=== PATIENT | male | born 1995 | race Caucasian/White ===

== ENCOUNTER 2018-12-04 04:13 | Emergency (ER) | payer OTHER ==
[2018-12-04 04:22] VITALS: BP 106/72; PULSE 75; RESP 18; TEMP 98.3
[2018-12-04] MEDS ORDERED: AMOXIC-POT CLAV 875MG STARTER 2 EACH TABLET PO STA (04:35)
[2018-12-04] MEDS ORDERED: ACET/COD 300 MG/30 MG STARTER PACK 6 TAB BTL PO STA (04:35)
[2018-12-04] MEDS ORDERED: IBUPROFEN 400 MG TAB PO STA (04:36)
--- NOTE | 2018-12-04 04:37 | ED ---
ENT HPI - General Chief complaint: Dental/Oral Stated complaint: Dental Pain/ Facial Numbness Time Seen by Provider: 12/04/18 04:28 Source: patient Mode of arrival: ambulatory Limitations: no limitations - History of Present Illness complaint: tooth pain Onset/Timin -: week(s) Location: tooth # (17) Severity: severe Quality: aching Consistency: constant Improves with: none Worsens with: none Context- Dental: history of dental caries Associated Symptoms: toothache - Related Data Previous Rx's Medication Instructions Recorded Amoxicillin 875 mg PO Q12HR #14 tablet 12/04/18 Ibuprofen [Motrin] 600 mg PO Q8HR PRN #20 tab 12/04/18 Allergies Allergy/AdvReac Type Severity Reaction Status Date / Time No Known Allergies Allergy Verified 12/04/18 04:22 Review of Systems ROS Statement: Those systems with pertinent positive or pertinent negative responses have been documented in the HPI. ROS Other: All systems not noted in ROS Statement are negative. Constitutional: Denies: fever, chills Eyes: Denies: eye pain, vision change Respiratory: Denies: dyspnea Cardiovascular: Denies: chest pain, palpitations Neurological: Denies: headache Past Medical History Past Medical History: No Reported History History of Any Multi-Drug Resistant Organisms: None Reported Past Surgical History: No Surgical Hx Reported Past Psychological History: No Psychological Hx Reported Smoking Status: Current every day smoker Past Alcohol Use History: Occasional Past Drug Use History: None Reported General Exam Limitations: no limitations General appearance: alert, in no apparent distress Head exam: Present: atraumatic, normocephalic Eye exam: Present: normal appearance, PERRL, EOMI. Absent: scleral icterus, conjunctival injection ENT exam: Present: mucous membranes moist, TM's normal bilaterally, normal external ear exam, other (Patient has extensive dental caries affecting most of his teeth. There is no abscess. No sublingual or neck fullness.) Neck exam: Present: normal inspection, full ROM. Absent: tenderness, meningismus Skin exam: Present: warm, dry, intact, normal color. Absent: rash Course Vital Signs 12/04/18 04:18 Temperature 98.3 F Pulse Rate 75 Respiratory 18 Rate Blood Pressure 106/72 O2 Sat by Pulse 99 Oximetry Disposition Clinical Impression: Dental caries, Toothache Disposition: HOME SELF-CARE Condition: Good Instructions (If sedation given, give patient instructions): Dental Caries (ED), Toothache (ED) Prescriptions: Amoxicillin 875 mg PO Q12HR #14 tablet Ibuprofen [Motrin] 600 mg PO Q8HR PRN #20 tab PRN Reason: Pain Is patient prescribed a controlled substance at d/c from ED?: No Referrals: None,Stated [Primary Care Provider] - 1-2 days
== END 2018-12-04 04:58 | disposition home or self-care (01) ==
LOC: EC 04:13
DX: K02.9 Dental caries, unspecified (principal); F17.200 Nicotine dependence, unspecified, uncomplicated
CPT/HCPCS: 99283

== ENCOUNTER 2021-01-11 07:56 | Emergency (ER) | payer OTHER ==
[2021-01-11 08:02] VITALS: BP 116/76; PULSE 88; RESP 18; TEMP 98.2
--- NOTE | 2021-01-11 08:15 | ED ---
General Adult HPI - General Chief complaint: Anxiety Stated complaint: anxiety Time Seen by Provider: 01/11/21 07:58 Source: patient Mode of arrival: ambulatory Limitations: no limitations - History of Present Illness Initial comments: Dictation was produced using [employer] dictation software. please excuse any grammatical, word or spelling errors. Chief Complaint: 25-year-old male no significant medical problems presents with paresthesias to the left side of the body History of Present Illness: 25-year-old male who presents today with nonspecific paresthesias to the left side of the body. He denies numbness or weakness. Patient states he's been feeling anxious. He drinks a lot of caffeine on a regular basis. He was told by his family members he is having symptoms in his arms that he may be having a heart attack. He has no chest pain or shortness of breath. Feels anxious about his symptoms. He does not have a history of anxiety. Patient drinks a lot of energy drinks on a regular basis. He had one 1 hour prior to arrival. Patient states that he plays video games a lot at night. He believes that his sleeping issues or hereditary. The ROS documented in this emergency department record has been reviewed and co nfirmed by me. Those systems with pertinent positive or negative responses have been documented in the HPI. All other systems are other negative and/or noncontributory. PHYSICAL EXAM: General Impression: Alert and oriented x3, not in acute distress HEENT: Normocephalic atraumatic, extra-ocular movements intact, pupils equal and reactive to light bilaterally, mucous membranes moist. Cardiovascular: Heart regular rate and rhythm Chest: Able to complete full sentences, no retractions, no tachypnea Abdomen: abdomen soft, non-tender, non-distended, no organomegaly Musculoskeletal: Pulses present and equal in all extremities, no peripheral edema Motor: no focal deficits noted Neurological: CN II-XII grossly intact, no focal motor or sensory deficits noted Skin: Intact with no visualized rashes Psych: Normal affect and mood ED course: 25-year-old male presents with self-reported left sided paresthesias. Signs upon arrival are within acceptable limits. EKG is unremarkable. Patient has no significant medical history. Metabolic panel is unremarkable. No electrolyte derangement. Patient reevaluated at bedside and found to be in stable medical condition. Patient does not have any high risk features. He is clinical stable at reevaluation approximate 9:20 AM. At this point is unclear what is causing patient's symptoms. His likely has some B do with anxiety versus excessive caffeine intake. Patient agreeable for discharge. Patient does have a PCP. He is given a referral. Advised follow-up. Patient counseled on good sleep hygiene. EKG interpretation: Ventricular rate 83, normal sinus rhythm,. 162, QRS 84, QTC 415. No TN prolongation, no QTC prolongation, no ST or T-wave changes noted. Overall, this EKG is unremarkable - Related Data Previous Rx's Medication Instructions Recorded Amoxicillin 875 mg PO Q12HR #14 tablet 12/04/18 Ibuprofen [Motrin] 600 mg PO Q8HR PRN #20 tab 12/04/18 Allergies Allergy/AdvReac Type Severity Reaction Status Date / Time No Known Allergies Allergy Verified 01/11/21 08:02 Review of Systems ROS Statement: Those systems with pertinent positive or pertinent negative responses have been documented in the HPI. ROS Other: All systems not noted in ROS Statement are negative. Past Medical History Past Medical History: No Reported History History of Any Multi-Drug Resistant Organisms: None Reported Past Surgical History: No Surgical Hx Reported Past Psychological History: Anxiety Smoking Status: Current every day smoker Past Alcohol Use History: Occasional Past Drug Use History: None Reported General Exam Limitations: no limitations Course Vital Signs 01/11/21 08:00 Temperature 98.2 F Pulse Rate 88 Respiratory 18 Rate Blood Pressure 116/76 O2 Sat by Pulse 99 Oximetry Medical Decision Making - Lab Data Result diagrams: 01/11/21 08:35 Lab Results 01/11/21 Range/Units 08:35 Sodium 141 (137-145) mmol/L Potassium 3.5 (3.5-5.1) mmol/L Chloride 103 (98-107) mmol/L Carbon Dioxide 31 H (22-30) mmol/L Anion Gap 7 mmol/L BUN 7 L (9-20) mg/dL Creatinine 0.92 (0.66-1.25) mg/dL Est GFR (CKD-EPI)AfAm >90 (>60 ml/min/1.73 sqM) Est GFR (CKD-EPI)NonAf >90 (>60 ml/min/1.73 sqM) Glucose 110 H (74-99) mg/dL Calcium 9.4 (8.4-10.2) mg/dL Magnesium 1.7 (1.6-2.3) mg/dL Disposition Clinical Impression: Paresthesias Disposition: HOME SELF-CARE Instructions (If sedation given, give patient instructions): Generalized Anxiety Disorder (ED) Is patient prescribed a controlled substance at d/c from ED?: No Referrals: Sharona Julian MD [STAFF PHYSICIAN] - 1-2 days
[2021-01-11 09:06] LABS: African American GFR (CKD) >90 (>60 ml/min/1.73 sqM); Anion Gap 7 mmol/L; Blood Urea Nitrogen 7 mg/dL (9-20); Calcium 9.4 mg/dL (8.4-10.2); Carbon Dioxide 31 mmol/L (22-30); Chloride 103 mmol/L (98-107); Glucose 110 mg/dL (74-99); Magnesium 1.7 mg/dL (1.6-2.3); Non-African American GFR(CKD) >90 (>60 ml/min/1.73 sqM); Potassium 3.5 mmol/L (3.5-5.1); Sodium 141 mmol/L (137-145)
== END 2021-01-11 09:55 | disposition home or self-care (01) ==
LOC: EC 07:56
DX: R20.2 Paresthesia of skin (principal); F17.200 Nicotine dependence, unspecified, uncomplicated
CPT/HCPCS: 36415; 80048; 83735; 93005; 99284

== ENCOUNTER 2024-11-10 23:49 | Emergency (ER) | payer BC, OTHER ==
[2024-11-10 23:53] VITALS: BP 114/77; PULSE 72; RESP 18; TEMP 98.2
--- NOTE | 2024-11-11 00:07 | ED ---
ENT HPI - General Chief complaint: Dental/Oral Stated complaint: Tooth abscess Time Seen by Provider: 11/10/24 23:54 Source: patient Mode of arrival: ambulatory Limitations: no limitations - History of Present Illness Initial comments: 29-year-old male presenting with chief complaint of of dental pain and swelling. Patient has history of poor oral hygiene with multiple dental caries and fractured teeth. States that today he noticed some increased swelling along the gumline and tenderness that increased throughout the day. States that he is having sharp pain in his jaw on the right lower side. No difficulty breathing or swallowing. No difficulty opening the jaw. No fever. - Related Data Previous Rx's Medication Instructions Recorded Amoxicillin 875 mg PO Q12HR #14 tablet 12/04/18 Ibuprofen [Motrin] 600 mg PO Q8HR PRN #20 tab 12/04/18 Amoxic-Pot Clav 875-125Mg 1 tab PO Q12HR 7 Days #14 tab 11/11/24 [Augmentin 875-125] Allergies Allergy/AdvReac Type Severity Reaction Status Date / Time No Known Allergies Allergy Verified 11/10/24 23:53 Review of Systems ROS Statement: Those systems with pertinent positive or pertinent negative responses have been documented in the HPI. ROS Other: All systems not noted in ROS Statement are negative. Past Medical History Past Medical History: No Reported History History of Any Multi-Drug Resistant Organisms: None Reported Past Surgical History: No Surgical Hx Reported Past Psychological History: Anxiety, Panic Disorder Smoking Status: Current every day smoker Past Alcohol Use History: Occasional Past Drug Use History: None Reported General Exam Limitations: no limitations General appearance: alert, in no apparent distress Head exam: Present: atraumatic, normocephalic, normal inspection Eye exam: Present: normal appearance, EOMI. Absent: periorbital swelling Expanded Mouth exam: Present: normal external inspection Teeth exam: Present: dental caries, fractured tooth #, dental tenderness #, gingival enlargement Neck exam: Present: normal inspection. Absent: meningismus Respiratory exam: Absent: respiratory distress Cardiovascular Exam: Present: regular rate Neurological exam: Present: alert, oriented X3 Psychiatric exam: Present: normal affect, normal mood Skin exam: Present: warm, dry, normal color Course Vital Signs 11/10/24 23:50 Temperature 98.2 F Pulse Rate 72 Respiratory 18 Rate Blood Pressure 114/77 O2 Sat by Pulse 97 Oximetry Medical Decision Making - Medical Decision Making Was pt. sent in by a medical professional or institution ([facility], ARCHITECTURAL DRAFTING INSTRUCTOR, urgent care, hospital, or long-term...) When possible be specific @ -No Did you speak to anyone other than the patient for history (EMS, parent, family, police, friend...)? What history was obtained from this source @ -No Did you review nursing and triage notes (agree or disagree)? Why? @ -I reviewed and agree with nursing and triage notes Were old charts reviewed (outside hosp., previous admission, EMS record, old EKG, old radiological studies, urgent care reports/EKG's, long-term records)? Report findings @ -No old charts were reviewed Differential Diagnosis (chest pain, altered mental status, abdominal pain women, abdominal pain men, vaginal bleeding, weakness, fever, dyspnea, syncope, headache, dizziness, GI bleed, back pain, seizure, CVA, palpatations, mental health, musculoskeletal)? @ -Differential includes dental pain, dental abscess, Margarito's angina, not an all-inclusive list EKG interpreted by me (3pts min.). @ -As above X-rays interpreted by me (1pt min.). @ -None done CT interpreted by me (1pt min.). @ -None done U/S interpreted by me (1pt. min.). @ -None done What testing was considered but not performed or refused? (CT, X-rays, U/S, labs)? Why? @ -None What meds were considered but not given or refused? Why? @ -None Did you discuss the management of the patient with other professionals (professionals i.e. [facility], ARCHITECTURAL DRAFTING INSTRUCTOR, lab, RT, psych nurse, psychiatric social worker, customer contact specialist, teacher, welfare officer, geriatric case manager)? Give summary @ -No Was smoking cessation discussed for >3mins.? @ -No Was critical care preformed (if so, how long)? @ -No Were there social determinants of health that impacted care today? How? (Homelessness, low income, unemployed, alcoholism, drug addiction, transportation, low edu. Level, literacy, decrease access to med. care, penitentiary, rehab)? @ -No Was there de-escalation of care discussed even if they declined (Discuss DNR or withdrawal of care, Hospice)? DNR status @ -No What co-morbidities impacted this encounter? (DM, HTN, Smoking, COPD, CAD, Cancer, CVA, ARF, Chemo, Hep., AIDS, mental health diagnosis, sleep apnea, morbid obesity)? @ -None Was patient admitted / discharged? Hospital course, mention meds given and route, prescriptions, significant lab abnormalities, going to OR and other pertinent info. @ -29-year-old male presenting with chief complaint of dental pain and swelling. On examination there is evidence of a dental abscess. No trismus. No difficulty breathing or swallowing. No red flag symptoms. Patient is started on Augmentin. He will follow-up with his dentist. Follow-up with PCP. Report back to ER with any new or worsening symptoms. Discussed return parameters and answered all questions. Patient conveyed verbal understanding and agreed to the plan. I discussed this case in detail with my attending Dr. Sanches Undiagnosed new problem with uncertain prognosis? @ -No Drug Therapy requiring intensive monitoring for toxicity (Heparin, Nitro, Insulin, Cardizem)? @ -No Were any procedures done? @ -No Diagnosis/symptom? @ -Dental abscess Acute, or Chronic, or Acute on Chronic? @ -Acute Uncomplicated (without systemic symptoms) or Complicated (systemic symptoms)? @ -Uncomplicated Side effects of treatment? @ -No Exacerbation, Progression, or Severe Exacerbation? @ -No Poses a threat to life or bodily function? How? (Chest pain, USA, MS, pneumonia, PE, COPD, DKA, ARF, appy, cholecystitis, CVA, Diverticulitis, Homicidal, Suicidal, threat to staff... and all critical care pts) @ -Low likelihood Disposition Clinical Impression: Dental abscess Disposition: HOME SELF-CARE Condition: Good Instructions (If sedation given, give patient instructions): Dental Abscess (E D) Additional Instructions: Follow-up with your dentist. Report back to ER with any new or worsening symptoms. Prescriptions: Amoxic-Pot Clav 875-125Mg [Augmentin 875-125] 1 tab PO Q12HR 7 Days #14 tab Is patient prescribed a controlled substance at d/c from ED?: No Referrals: None,Stated [Primary Care Provider] - 1-2 days Time of Disposition: 00:06
[2024-11-11] MEDS: AMOXIC-POT CLAV 875-125MG 1 EACH TAB PO STA (00:30)
== END 2024-11-11 00:38 | disposition home or self-care (01) ==
LOC: EC 23:49
DX: K04.7 Periapical abscess without sinus (principal); F17.200 Nicotine dependence, unspecified, uncomplicated
CPT/HCPCS: 99282

== ENCOUNTER 2024-11-20 11:11 | Emergency (ER) | payer BC, OTHER ==
[2024-11-20 11:16] VITALS: TEMP 98
[2024-11-20] MEDS: diphenhydrAMINE 50 MG/ML 1 ML VIAL IVP STA (11:41)
[2024-11-20] MEDS: SODIUM CHLORIDE 0.9% 1,000 ML IV ONE (11:41)
[2024-11-20] MEDS: FAMOTIDINE 20 MG/2 ML VIAL IV STA (11:43)
[2024-11-20] MEDS: methylPREDNISolone SOD SUCCI 125 MG/2 ML VIAL IV STA (11:45)
[2024-11-20 11:56] LABS: HCT 44.1 % (39.6-50.0); HGB 16.4 g/dL (13.0-17.0); MCHC 37.2 g/dL (32.0-37.0); Mean Platelet Volume 9.5 fL (9.5-12.2); Platelet Count 289 10*3/uL (140-440); RBC 5.13 10*6/uL (4.40-5.60); RDW 11.9 % (11.5-14.5); WBC 9.53 10*3/uL (4.50-10.00)
--- NOTE | 2024-11-20 12:15 | XR ---
EXAMINATION TYPE: XR chest 1V portable DATE OF EXAM: 11/20/2024 12:08 PM COMPARISON: None TECHNIQUE: XR chest 1V portable Portable AP radiograph of the chest. CLINICAL INDICATION:Male, 29 years old with history of allergic reaction; FINDINGS: Lungs/Pleura: There is no evidence of pleural effusion, focal consolidation, or pneumothorax. Pulmonary vascularity: Unremarkable. Heart/mediastinum: Cardiomediastinal silhouette is unremarkable. Musculoskeletal: No acute osseous pathology. IMPRESSION: No acute cardiopulmonary disease/process. [facility], , 11/20/2024 12:13 PM
[2024-11-20 12:18] LABS: African American GFR (CKD) >90 (>60 ml/min/1.73 sqM); Anion Gap 8 mmol/L; Blood Urea Nitrogen 10 mg/dL (9-20); Calcium 9.8 mg/dL (8.4-10.2); Carbon Dioxide 33 mmol/L (22-30); Chloride 99 mmol/L (98-107); Glucose 90 mg/dL (74-99); Non-African American GFR(CKD) >90 (>60 ml/min/1.73 sqM); Potassium 3.9 mmol/L (3.5-5.1); Sodium 140 mmol/L (137-145)
[2024-11-20 13:18] VITALS: BP 102/65; PULSE 71; RESP 16
--- NOTE | 2024-11-20 13:22 | ED ---
General Adult HPI - General Chief complaint: Allergic Reaction Stated complaint: tongue swelling, KIM Time Seen by Provider: 11/20/24 11:15 Source: patient, RN notes reviewed, old records reviewed Mode of arrival: ambulatory Limitations: no limitations - History of Present Illness Initial comments: Patient is a 29-year-old male who presents emergency department for concern for allergic reaction. Patient has been on azithromycin for a tooth abscess. He is on day 2 currently and states that he began experiencing a tingling sensation in his tongue and like it was swelling up. He became concerned which is why presents for further evaluation. Denies any difficulty breathing or swallowing. Denies any chest pain or shortness of breath. Denies any nausea or vomiting. Does have general poor dentition. No known allergies to antibiotics. Presents for further evaluation at this time. Symptoms began at approximately 7 AM this morning. I evaluated the patient at approximately 11:15 AM. - Related Data Home Medications Medication Instructions Recorded Confirmed Azithromycin [Zithromax Z Pack] See Taper PO DIRECTED 11/20/24 11/20/24 Previous Rx's Medication Instructions Recorded Ibuprofen [Motrin] 600 mg PO Q8HR PRN #20 tab 12/04/18 Amoxic-Pot Clav 875-125Mg 1 tab PO BID 7 Days #14 tab 11/20/24 [Augmentin 875-125] predniSONE [Deltasone] 20 mg PO DAILY 3 Days #3 tab 11/20/24 Allergies Allergy/AdvReac Type Severity Reaction Status Date / Time No Known Allergies Allergy Verified 11/20/24 12:39 Review of Systems ROS Statement: Those systems with pertinent positive or pertinent negative responses have been documented in the HPI. Review of Systems: CONST: Denies fever EYES: Denies blurry vision ENT: Endorses tongue paresthesias/swelling C/V: Denies Chest pain RESP: Denies shortness of breath GI: Denies abdominal pain : Denies dysuria SKIN: Denies rash. MSK: Denies joint pain. NEURO: Denies headache ROS Other: All systems not noted in ROS Statement are negative. Past Medical History Past Medical History: No Reported History History of Any Multi-Drug Resistant Organisms: None Reported Past Surgical History: No Surgical Hx Reported Past Psychological History: Anxiety, Panic Disorder Smoking Status: Current every day smoker Past Alcohol Use History: Occasional Past Drug Use History: None Reported General Exam - General Exam Comments Initial Comments: General: Appears in no acute distress. HEAD: Normal with no signs of head trauma. EYES: PERRLA, EOMI, conjunctiva normal, no discharge. ENT: Hearing grossly intact, normal oropharynx. No posterior oropharyngeal edema or swelling. Uvula is midline. No obvious tongue edema or swelling. No floor of the mouth mild swelling. No stridor auscultated. RESPIRATORY: Clear breath sounds bilaterally. No wheezes, rales, or rhonchi. No hypoxia. C/V: Regular rate and rhythm. S1 and S2 auscultated, no edema, peripheral pulses 2+ and intact throughout ABD: Abd is soft, nontender, nondistended EXT: No obvious deformity SKIN: No rashes or lesions observed on exposed skin. NEURO: Alert and oriented x 4. Limitations: no limitations Course Vital Signs 11/20/24 11/20/24 11:13 13:16 Temperature 98 F Pulse Rate 84 71 Respiratory 18 16 Rate Blood Pressure 113/77 102/65 O2 Sat by Pulse 99 99 Oximetry Medical Decision Making - Medical Decision Making Was pt. sent in by a medical professional or institution (, PA, ALUM OPERATOR, urgent care, hospital, or halfway...) When possible be specific @ -No Did you speak to anyone other than the patient for history (EMS, parent, family, police, friend...)? What history was obtained from this source @ -No Did you review nursing and triage notes (agree or disagree)? Why? @ -I reviewed and agree with nursing and triage notes Were old charts reviewed (outside hosp., previous admission, EMS record, old EKG, old radiological studies, urgent care reports/EKG's, halfway records)? Report findings @ -No old charts were reviewed Differential Diagnosis (chest pain, altered mental status, abdominal pain women, abdominal pain men, vaginal bleeding, weakness, fever, dyspnea, syncope, headache, dizziness, GI bleed, back pain, seizure, CVA, palpatations, mental h ealth, musculoskeletal)? @ -Tongue swelling, allergic reaction, paresthesias. This list is not all inclusive. EKG interpreted by me (3pts min.). @ -None done X-rays interpreted by me (1pt min.). @ -Chest x-ray shows no obvious acute process. CT interpreted by me (1pt min.). @ -None done U/S interpreted by me (1pt. min.). @ -None done What testing was considered but not performed or refused? (CT, X-rays, U/S, labs)? Why? @ -None What meds were considered but not given or refused? Why? @ -None Did you discuss the management of the patient with other professionals (professionals i.e. Dr., PA, ALUM OPERATOR, lab, RT, psych nurse, community mental health social worker, electronic science teacher, teacher, health officer, case liner)? Give summary @ -No Was smoking cessation discussed for >3mins.? @ -No Was critical care preformed (if so, how long)? @ -No Were there social determinants of health that impacted care today? How? (Homele ssness, low income, unemployed, alcoholism, drug addiction, transportation, low edu. Level, literacy, decrease access to med. care, shelter, rehab)? @ -No Was there de-escalation of care discussed even if they declined (Discuss DNR or withdrawal of care, Hospice)? DNR status @ -No What co-morbidities impacted this encounter? (DM, HTN, Smoking, COPD, CAD, Cancer, CVA, ARF, Chemo, Hep., AIDS, mental health diagnosis, sleep apnea, morbid obesity)? @ -None Was patient admitted / discharged? Hospital course, mention meds given and route, prescriptions, significant lab abnormalities, going to OR and other pertinent info. @ -Based on the patient's presentation and physical exam, presents emergency department complaining of tongue swelling/paresthesias. Exam is unremarkable and vitals are within acceptable limits. However we will treat the patient as allergic reaction. Likely secondary to the azithromycin. Will obtain basic labs as well as a screening x-ray. Patient administered IV fluids, IV Benadryl, IV famotidine, IV Solu-Medrol. He will be observed for at least 2 hours in our department. He is in agreement this plan. Laboratory studies were unremarkable. X-ray imaging unremarkable. After 2 hours, patient is feeling improved. Exam remains unremarkable. No respiratory distress. No oral edema. Did discuss with the patient that is uncertain regarding possible allergic reaction but I did recommend avoiding azithromycin moving forward. He will be switched to Augmentin which he has taken in the past and given a prescription for prednisone for 3 days. Patient was in agreement this plan. Strict return precautions discussed. Recommend follow-up with PCP and in the next 1 to 3 days. Follow-up with dentist in the next 1 to 3 days. I will provide the patient with a prescription for prednisone, Augmentin. I instructed the patient to follow up with their PCP in the next 1-3 days.. I explained that the patient should return to the emergency department if they experience any worsening symptoms. Strict return precautions were discussed with the patient. The patient expressed understanding of these instructions. I answered all questions that the patient had. The patient was discharged home in good condition with their prescriptions and follow up information. Undiagnosed new problem with uncertain prognosis? @ -No Drug Therapy requiring intensive monitoring for toxicity (Heparin, Nitro, Insulin, Cardizem)? @ -No Were any procedures done? @ -No Diagnosis/symptom? @ -Allergic reaction Acute, or Chronic, or Acute on Chronic? @ -Acute Uncomplicated (without systemic symptoms) or Complicated (systemic symptoms)? @ -Uncomplicated Side effects of treatment? @ -No Exacerbation, Progression, or Severe Exacerbation? @ -No Poses a threat to life or bodily function? How? (Chest pain, [place], [place], pneumonia, PE, COPD, DKA, ARF, appy, cholecystitis, CVA, Diverticulitis, Homicidal, Suicidal, threat to staff... and all critical care pts) @ -Unlikely at this time - Lab Data Result diagrams: 11/20/24 11:34 11/20/24 11:34 Lab Results 11/20/24 11/20/24 Range/Units 11:34 11:34 WBC 9.53 (4.50-10.00) 10*3/uL RBC 5.13 (4.40-5.60) 10*6/uL Hgb 16.4 (13.0-17.0) g/dL Hct 44.1 (39.6-50.0) % MCV 86.0 (80.0-97.0) fL MCH 32.0 (27.0-32.0) pg MCHC 37.2 H (32.0-37.0) g/dL Plt Count 289 (140-440) 10*3/uL MPV 9.5 (9.5-12.2) fL Sodium 140 (137-145) mmol/L Potassium 3.9 (3.5-5.1) mmol/L Chloride 99 (98-107) mmol/L Carbon Dioxide 33 H (22-30) mmol/L Anion Gap 8 mmol/L BUN 10 (9-20) mg/dL Creatinine 0.91 (0.66-1.25) mg/dL Est GFR (CKD-EPI)AfAm >90 (>60 ml/min/1.73 sqM) Est GFR (CKD-EPI)NonAf >90 (>60 ml/min/1.73 sqM) Glucose 90 (74-99) mg/dL Calcium 9.8 (8.4-10.2) mg/dL Disposition Clinical Impression: Allergic reaction Disposition: HOME SELF-CARE Condition: Good Additional Instructions: Monitor your symptoms and return to the ER for any concern. Follow-up with your dentist for follow-up. Return if any worsening symptoms. Follow-up with your PCP in the next 1 to 3 days. Prescriptions: Amoxic-Pot Clav 875-125Mg [Augmentin 875-125] 1 tab PO BID 7 Days #14 tab predniSONE [Deltasone] 20 mg PO DAILY 3 Days #3 tab Is patient prescribed a controlled substance at d/c from ED?: No Referrals: None,Stated [Primary Care Provider] - 1-2 days Forms: Area PCPs Time of Disposition: 13:21
== END 2024-11-20 13:30 | disposition home or self-care (01) ==
LOC: EC 11:11
DX: R06.02 Shortness of breath (principal); T36.3X5A Adverse effect of macrolides, initial encounter; F17.200 Nicotine dependence, unspecified, uncomplicated
CPT/HCPCS: 36415; 80048; 85027; 71045; 99285; 96374; 96375 ×2; 96361; J1200; J2919; J1308; 99284

== ENCOUNTER 2025-01-20 21:18 | Emergency (ER) | payer BC, OTHER ==
[2025-01-20 21:32] VITALS: TEMP 97.8
--- NOTE | 2025-01-20 22:10 | ED ---
General Adult HPI - General Chief complaint: Anxiety Stated complaint: Anxiety, accelerated heart rate Time Seen by Provider: 01/20/25 21:20 Source: patient, family, RN notes reviewed, old records reviewed Mode of arrival: ambulatory Limitations: no limitations - History of Present Illness Initial comments: 29-year-old male with a past medical history of anxiety presents with complaints of anxiousness. States earlier today he was just sitting on the couch playing his video game when he started having a "elevated feeling in his chest ". Denies chest pain, admits to some chest pressure without radiation. States this happened to him before when he is had anxiety attacks in the past. Reports he does not know what the exact trigger of this particular episode was, but states his normal stressors are job insecurity, having some recent trauma in his life, and not being able to seek proper medical care for an abscess that he has and needs surgery for but has only been able to take antibiotics for. States he does not follow with a primary care and does not take any long-term medications for anxiety as he is worried about getting hooked down to something for the rest of his life. Admits to significant cardiac family history including 3 stents placed in his mother, triple bypass in his maternal grandfather, and defibrillator placement in his maternal grandmother. - Related Data Home Medications Medication Instructions Recorded Confirmed Azithromycin [Zithromax Z Pack] See Taper PO DIRECTED 11/20/24 11/20/24 Previous Rx's Medication Instructions Recorded Ibuprofen [Motrin] 600 mg PO Q8HR PRN #20 tab 12/04/18 Amoxic-Pot Clav 875-125Mg 1 tab PO BID 7 Days #14 tab 11/20/24 [Augmentin 875-125] predniSONE [Deltasone] 20 mg PO DAILY 3 Days #3 tab 11/20/24 Allergies Allergy/AdvReac Type Severity Reaction Status Date / Time azithromycin Allergy Swelling Verified 01/20/25 21:32 Review of Systems ROS Statement: Those systems with pertinent positive or pertinent negative responses have been documented in the HPI. ROS Other: All systems not noted in ROS Statement are negative. Past Medical History Past Medical History: No Reported History History of Any Multi-Drug Resistant Organisms: None Reported Past Surgical History: No Surgical Hx Reported Past Psychological History: Anxiety, Panic Disorder Smoking Status: Current every day smoker Past Alcohol Use History: Occasional Past Drug Use History: None Reported General Exam - General Exam Comments Initial Comments: GENERAL: In mild apparent distress at the time of examination. Pleasant and cooperative. HEENT: Head is atraumatic, normocephalic. Pupils are equal, round, and reactive to light. Sclerae anicteric. Conjunctivae are clear. Mucus membranes of the mouth are moist. Neck is supple. RESPIRATORY: Clear to auscultation. No wheezes, rales, or rhonchi. No use of accessory muscles. Patient maintaining oxygen saturation greater than 92%. No chest wall tenderness is noted on palpation or with deep breathing. CARDIOVASCULAR: Tachycardic. S1 and S2 noted. No systolic or diastolic murmur auscultated. No JVD noted. No S3 or S4 noted. GASTROINTESTINAL: No distention noted. Abdomen soft and round. Normal active bowel sounds auscultated x 4 quadrants. No pain or tenderness noted upon palpation. INTEGUMENTARY: No cyanosis. No jaundice. No rashes noted. No cellulitis noted. EXTREMITIES: 2+ peripheral pulses. No evidence of peripheral edema. No calf tenderness noted. PSYCHIATRIC: Awake, alert, and oriented X 3. Appropriate affect. Intact judgement and insight. Limitations: no limitations Course Vital Signs 01/20/25 21:29 Temperature 97.8 F Pulse Rate 89 Respiratory 18 Rate Blood Pressure 111/66 O2 Sat by Pulse 96 Oximetry Medical Decision Making - Medical Decision Making Was pt. sent in by a medical professional or institution (Dr. PA, CHANGE MANAGEMENT ADMINISTRATOR, urgent care, hospital, or jail...) When possible be specific @ -No Did you speak to anyone other than the patient for history (EMS, parent, family, police, friend...)? What history was obtained from this source @ -No Did you review nursing and triage notes (agree or disagree)? Why? @ -I reviewed and agree with nursing and triage notes Were old charts reviewed (outside hosp., previous admission, EMS record, old EKG, old radiological studies, urgent care reports/EKG's, jail records)? Report findings @ -No old charts were reviewed Differential Diagnosis? @ -Anxiety, chest pain, angina, [place], costochondritis, cholecystitis, this not been to be a fully inclusive list. EKG interpreted by me (3pts min.). @ -As interpreted by me, normal sinus rhythm X-rays interpreted by me (1pt min.). @ -None done CT interpreted by me (1pt min.). @ -None done U/S interpreted by me (1pt. min.). @ -None done What testing was considered but not performed or refused? (CT, X-rays, U/S, labs)? Why? @ -None What meds were considered but not given or refused? Why? @ -None Did you discuss the management of the patient with other professionals (professionals i.e. DrAsia, PA, CHANGE MANAGEMENT ADMINISTRATOR, lab, RT, psych nurse, social science research assistant, bid analyst, teacher, strategic debriefing officer, embedded case manager)? Give summary @ -No Was smoking cessation discussed for >3mins.? @ -No Was critical care preformed (if so, how long)? @ -No Were there social determinants of health that impacted care today? How? (Homelessness, low income, unemployed, alcoholism, drug addiction, tra nsportation, low edu. Level, literacy, decrease access to med. care, half-way, rehab)? @ -No Was there de-escalation of care discussed even if they declined (Discuss DNR or withdrawal of care, Hospice)? DNR status @ -No What co-morbidities impacted this encounter? (DM, HTN, Smoking, COPD, CAD, Cancer, CVA, ARF, Chemo, Hep., AIDS, mental health diagnosis, sleep apnea, morbid obesity)? @ -None Was patient admitted / discharged? Hospital course, mention meds given and route, prescriptions, significant lab abnormalities, going to OR and other pertinent info. @ -Discharged, 29-year-old male presenting with symptoms of anxiety and chest pressure. EKG performed here and interpreted by me shows normal sinus rhythm. Patient was also given p.o. alprazolam 0.5 mg with improvement in his symptoms of anxiety and resolution of his chest pressure. Patient was relieved to hear that EKG was normal, and was feeling better after receiving medications of the patient was discharged at that point in time. Patient advised to follow-up with his PCP in 1 to 2 days. Undiagnosed new problem with uncertain prognosis? @ -No Drug Therapy requiring intensive monitoring for toxicity (Heparin, Nitro, Insulin, Cardizem)? @ -No Were any procedures done? @ -No Diagnosis/symptom? @ -Anxiety Acute, or Chronic, or Acute on Chronic? @ -Acute on chronic Uncomplicated (without systemic symptoms) or Complicated (systemic symptoms)? @ -Default Side effects of treatment? @ -No Exacerbation, Progression, or Severe Exacerbation? @ -No Poses a threat to life or bodily function? How? (Chest pain, [place], [place], pneumonia, PE, COPD, DKA, ARF, appy, cholecystitis, CVA, Diverticulitis, Homicidal, Suicidal, threat to staff... and all critical care pts) @ -No Disposition Clinical Impression: Acute anxiety Disposition: HOME SELF-CARE Instructions (If sedation given, give patient instructions): Generalized Anxiety Disorder (ED) Is patient prescribed a controlled substance at d/c from ED?: No Referrals: None,Stated [Primary Care Provider] - 1-2 days
[2025-01-20] MEDS: ALPRAZolam 0.5 MG TAB PO STA (22:39)
[2025-01-21 01:12] VITALS: BP 100/64; PULSE 71; RESP 16
== END 2025-01-21 01:01 | disposition home or self-care (01) ==
LOC: EC 21:18
DX: F41.9 Anxiety disorder, unspecified (principal); F17.200 Nicotine dependence, unspecified, uncomplicated; Z88.1 Allergy status to other antibiotic agents
CPT/HCPCS: 93005; 99283

== ENCOUNTER 2025-02-10 00:04 | Emergency (ER) | payer OTHER ==
--- NOTE | 2025-02-10 00:43 | ED ---
Anxiety HPI - General Chief Complaint: Anxiety Stated Complaint: Tingling Sensation in Chest Time Seen by Provider: 02/10/25 00:27 Source: patient Mode of arrival: ambulatory - History of Present Illness Initial Comments: 29-year-old male present with chief complaint of anxiety. Patient reports that he was feeling a tingling sensation in in his left nipple this evening. He den ies any injury or trauma. No difficulty breathing. Pain does not feel deeper in the chest. He reports that he has been dealing with a lot of anxiety lately, he reports that he drinks a lot of caffeinated soda and does not drink much water. He also reports that he is working a lot and not resting much. He feels his eyelid twitching sometimes. No fever or chills. He "does not currently take any antianxiety meds - Related Data Home Medications: Home Medications Medication Instructions Recorded Confirmed Azithromycin [Zithromax Z Pack] See Taper PO DIRECTED 11/20/24 11/20/24 Previous Rx's Medication Instructions Recorded Ibuprofen [Motrin] 600 mg PO Q8HR PRN #20 tab 12/04/18 Amoxic-Pot Clav 875-125Mg 1 tab PO BID 7 Days #14 tab 11/20/24 [Augmentin 875-125] predniSONE [Deltasone] 20 mg PO DAILY 3 Days #3 tab 11/20/24 Allergies/Adverse Reactions: Allergies Allergy/AdvReac Type Severity Reaction Status Date / Time azithromycin Allergy Swelling Verified 02/10/25 00:09 Review of Systems ROS Statement: Those systems with pertinent positive or pertinent negative responses have been documented in the HPI. ROS Other: All systems not noted in ROS Statement are negative. Past Medical History Past Medical History: No Reported History History of Any Multi-Drug Resistant Organisms: None Reported Past Surgical History: No Surgical Hx Reported Past Psychological History: Anxiety, Panic Disorder Smoking Status: Current every day smoker Past Alcohol Use History: Occasional Past Drug Use History: None Reported General Exam Limitations: no limitations General appearance: alert, in no apparent distress Head exam: Present: atraumatic, normocephalic, normal inspection Eye exam: Present: normal appearance, EOMI Neck exam: Present: normal inspection. Absent: meningismus Respiratory exam: Present: normal lung sounds bilaterally. Absent: respiratory distress, wheezes, rales, rhonchi, stridor, chest wall tenderness Cardiovascular Exam: Present: regular rate, normal rhythm, normal heart sounds. Absent: systolic murmur, diastolic murmur, rubs, gallop, clicks Neurological exam: Present: alert, oriented X3 Psychiatric exam: Present: normal affect, normal mood Skin exam: Present: warm, dry, normal color Course Vital Signs 02/10/25 02/10/25 00:06 00:53 Temperature 98 F 98.9 F Pulse Rate 75 67 Respiratory 18 17 Rate Blood Pressure 123/80 116/92 O2 Sat by Pulse 97 99 Oximetry Medical Decision Making - Medical Decision Making Was pt. sent in by a medical professional or institution (CELSO Gu, [facility], urgent care, hospital, or senior living...) When possible be specific @ -No Did you speak to anyone other than the patient for history (EMS, parent, family, police, friend...)? What history was obtained from this source @ -No Did you review nursing and triage notes (agree or disagree)? Why? @ -I reviewed and agree with nursing and triage notes Were old charts reviewed (outside hosp., previous admission, EMS record, old EKG, old radiological studies, urgent care reports/EKG's, senior living records)? Report findings @ -No old charts were reviewed Differential Diagnosis (chest pain, altered mental status, abdominal pain women, abdominal pain men, vaginal bleeding, weakness, fever, dyspnea, syncope, headache, dizziness, GI bleed, back pain, seizure, CVA, palpatations, mental health, musculoskeletal)? @ -Differential includes anxiety, foreign body sensation, ACS, not an all- inclusive list EKG interpreted by me (3pts min.). @ -EKG shows sinus rhythm ventricular rate 71. SD interval 164. QRS 78. QT 365. QTc 388 X-rays interpreted by me (1pt min.). @ -None done CT interpreted by me (1pt min.). @ -None done U/S interpreted by me (1pt. min.). @ -None done What testing was considered but not performed or refused? (CT, X-rays, U/S, labs)? Why? @ -None What meds were considered but not given or refused? Why? @ -None Did you discuss the management of the patient with other professionals (professionals i.e. CELSO Gu, [facility], lab, RT, psych nurse, social media assistant, title lawyer, teacher, loan review officer, wrapper caser)? Give summary @ -No Was smoking cessation discussed for >3mins.? @ -No Was critical care preformed (if so, how long)? @ -No Were there social determinants of health that impacted care today? How? (Homelessness, low income, unemployed, alcoholism, drug addiction, transportation, low edu. Level, literacy, decrease access to med. care, halfway, rehab)? @ -No Was there de-escalation of care discussed even if they declined (Discuss DNR or withdrawal of care, Hospice)? DNR status @ -No What co-morbidities impacted this encounter? (DM, HTN, Smoking, COPD, CAD, Cancer, CVA, ARF, Chemo, Hep., AIDS, mental health diagnosis, sleep apnea, morbid obesity)? @ -None Was patient admitted / discharged? Hospital course, mention meds given and route, prescriptions, significant lab abnormalities, going to OR and other pertinent info. @ -29-year-old male here with suspected anxiety. He reports that he fell like he was having tingling in his left nipple earlier this evening. No other complaints. This sensation is no longer present. Heart and lungs are clear to auscultation. Normal inspection on exam. No tenderness on palpation. EKG shows sinus rhythm. Follow-up with PCP. Report back to ER with any new or worsening symptoms. Discussed return parameters and answered all questions. Patient conveyed verbal understanding and agreed to the plan. I discussed this case in detail with my attending Dr. Gonzalez Undiagnosed new problem with uncertain prognosis? @ -No Drug Therapy requiring intensive monitoring for toxicity (Heparin, Nitro, Insulin, Cardizem)? @ -No Were any procedures done? @ -No Diagnosis/symptom? @ -Anxiety Acute, or Chronic, or Acute on Chronic? @ -Acute Uncomplicated (without systemic symptoms) or Complicated (systemic symptoms)? @ -Uncomplicated Side effects of treatment? @ -No Exacerbation, Progression, or Severe Exacerbation? @ -No Poses a threat to life or bodily function? How? (Chest pain, [place], [place], pneumonia, PE, COPD, DKA, ARF, appy, cholecystitis, CVA, Diverticulitis, Homicidal, Suicidal, threat to staff... and all critical care pts) @ -Unlikely Disposition Clinical Impression: Acute anxiety Disposition: HOME SELF-CARE Condition: Good Instructions (If sedation given, give patient instructions): Generalized Anxiety Disorder (ED) Additional Instructions: Follow-up with PCP. Report back to ER with any new or worsening symptoms. Is patient prescribed a controlled substance at d/c from ED?: No Referrals: None,Stated [Primary Care Provider] - 1-2 days Angel Calvillo MD [RESIDENT] - 1-2 days Forms: Area PCPs Time of Disposition: 00:43
[2025-02-10 00:55] VITALS: BP 116/92; PULSE 67; RESP 17; TEMP 98.9
== END 2025-02-10 00:54 | disposition home or self-care (01) ==
LOC: EC 00:04
DX: F41.9 Anxiety disorder, unspecified (principal); F17.200 Nicotine dependence, unspecified, uncomplicated; Z88.1 Allergy status to other antibiotic agents
CPT/HCPCS: 93005; 99283